=== PATIENT | male | born 2000 | race Caucasian/White ===

== ENCOUNTER 2023-04-21 19:51 | Emergency (ER) | payer OTHER ==
[~2023-04-21] VITALS: Ht 188 cm; Wt 104.3 kg
--- NOTE | 2023-04-21 21:50 | NUR ---
CAME WITH CC OF [facility] PAIN STARTED 12NOON, PT BEING TREATED FOR UTI. TAKING NITROFURANTOIN MEDS X 2DAYS PAIN SCALE 5/10
--- NOTE | 2023-04-21 22:00 | NUR ---
MD SEEN AT BEDSIDE
--- NOTE | 2023-04-21 22:15 | NUR ---
COLLATERAL CLERK SEEN AT BEDSIDE, BLOOD DRAWN AND SENT TO LAB
[2023-04-21 22:22] LABS: BASOPHILS % (AUTO) 0.3 % (0.0-2.0); EOSINOPHILS % (AUTO) 0.7 % (0.0-6.0); HEMATOCRIT 44 % (39-51); HEMOGLOBIN 14.7 g/dL (13.5-17.5); LYMPHOCYTES # (AUTO) 3.6 K/uL (0.8-4.8); MEAN CORPUSCULAR HGB CONC 34 g/dl (31.0-36.0); MEAN CORPUSCULAR VOLUME 83 fL (80-96); MONOCYTES % (AUTO) 9.2 % (2.0-12.0); NEUTROPHILS # (AUTO) 6.2 K/uL (1.8-8.9); NEUTROPHILS % (AUTO) 56.8 % (43.0-81.0); PLATELET COUNT (AUTO) 352 K/uL (150-450); RED BLOOD CELL COUNT(AUTO) 5.28 MIL/uL (4.5-6.0); WHITE BLOOD COUNT (AUTO) 10.9 K/uL (4.3-11.0)
--- NOTE | 2023-04-21 22:26 | NUR ---
URINE COLLECTED AND SENT TO LAB
[2023-04-21 22:38] LABS: BILIRUBIN,DIRECT 0.1 mg/dL (0.0-0.2); BILIRUBIN,TOTAL 0.2 mg/dL (0.2-1.0); CALCIUM, SERUM 9.9 mg/dL (8.5-10.1); CREATININE 1.1 mg/dL (0.6-1.3); POTASSIUM 3.8 mmol/L (3.5-5.1); TOTAL PROTEIN, SERUM 8.7 g/dL (6.4-8.2)
--- NOTE | 2023-04-21 22:40 | NUR ---
US TECH SEEN AT BEDSIDE
[2023-04-21 23:06] LABS: BILIRUBIN,URINE NEGATIVE (NEGATIVE); COLOR,URINE YELLOW (YELLOW); LEUKOCYTE ESTERASE ,URINE NEGATIVE (NEGATIVE); NITRITE, URINE NEGATIVE (NEGATIVE); PROTEIN,URINE NEGATIVE (NEGATIVE); UGLUCOSE NEGATIVE (NEGATIVE); UROBILINOGEN,URINE 0.2 EU/dL (0.2)
[2023-04-21 23:20] LABS: BACTERIA,URINE Rare /HPF (None Seen)
--- NOTE | 2023-04-22 00:28 | NUR ---
Patient discharged to home in stable condition. Written and verbal after care instructions given. Patient verbalizes understanding of instruction.
[2023-04-22 00:29] VITALS: BP 153/98; TEMP 99.5
== END 2023-04-22 00:30 | disposition home or self-care (01) ==
LOC: ER 19:53
DX: R31.9 Hematuria, unspecified (principal); R10.31 Right lower quadrant pain; R10.32 Left lower quadrant pain; Z98.890 Other specified postprocedural states; Z60.2 Problems related to living alone
CPT/HCPCS: 36415; 76770-TC; 80048-TC; 80076-TC; 81001; 83690-TC; 85025-TC